=== PATIENT | male | born 1980 | race African-American/Black ===

== ENCOUNTER → 2017-03-31 | Outpatient (CLI) | payer OTHER ==
[~2017-03-31] MED LIST: CEFD300C3 PO; CEPH500C PO; HYDR-1231 PO; IBP600T1 PO; SULF1TAB38 PO
--- NOTE | 2017-03-31 09:53 | Diagnostic Imaging Report ---
PROCEDURE: MRI left joint lower extremity without contrast. TECHNIQUE: Multiplanar, multisequence MR imaging of the left knee was performed without contrast. COMPARISON: None available. INDICATION: Knee pain after injury playing basketball. FINDINGS: MENISCI Medial meniscus: Intrasubstance signal within the posterior horn of the meniscus is likely due to intrasubstance degeneration. No displaced medial meniscal tear. Lateral meniscus: Normal. LIGAMENTS ACL: Intact. PCL: Intact. MCL: Intact. LCL: The lateral collateral ligamentous complex is intact. EXTENSOR MECHANISM The extensor mechanism is intact. CARTILAGE Medial compartment: Multifocal full-thickness chondral fissuring and delamination within the posterior and central weightbearing portion of the medial femoral condyle. There is underlying subchondral bone marrow edema. No broad areas of full-thickness chondral loss medial femoral condyle. Lateral compartment: Full-thickness chondromalacia in the posterior weightbearing surface of the lateral femoral condyle (image 7, series 5). Patellofemoral compartment: Focal full-thickness chondral defect in the trochlear groove with underlying subchondral bone marrow edema and sclerosis (size on image 10, series 3 and image 14, series 4). BONE No fracture or bone contusion. SOFT TISSUE: Moderate-sized knee joint effusion with synovitis. Small Bolton's cyst with edema tracking along the superficial aspect of the medial head of gastrocnemius, indicative of partial cyst rupture. IMPRESSION: 1. Multifocal full-thickness chondral fissuring, small areas of chondral loss and a few foci of chondral delamination involving all three compartments. Some of these foci have underlying subchondral bone marrow edema and cystic change, and may represent a posttraumatic osteochondral lesions. There are no MRI findings to indicate an unstable osteochondral lesion. 2. No meniscal tear. 3. The ACL and MCL are intact. 4. Moderate-sized knee joint effusion with synovitis. 5. Small Bolton's cyst is partially ruptured. Dictated by: Dictated on workstation # [id number]
== END ==
LOC: RAD 08:15
PROVIDERS: ATTEND Family Medicine
DX: M94.8X6 Other specified disorders of cartilage, lower leg (principal); M25.462 Effusion, left knee; M66.0 Rupture of popliteal cyst
CPT/HCPCS: 73721

== ENCOUNTER 2018-05-10 22:13 | Emergency (ER) | payer SELFPAY ==
[~2018-05-10] VITALS: Ht 193 cm; Wt 88.5 kg
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
[2018-05-10 22:56] LABS: BASOPHILS # (AUTO) 0.1 10^3/uL (0.0-0.1); BASOPHILS % (AUTO) 1 % (0-10); EOSINOPHILS # (AUTO) 0.8 10^3/uL (0.0-0.3); EOSINOPHILS % (AUTO) 12 % (0-10); HEMATOCRIT 41 % (40-54); HEMOGLOBIN 13.8 G/DL (13.3-17.7); LYMPHOCYTES # (AUTO) 2.1 X 10^3 (1.0-4.0); LYMPHOCYTES % (AUTO) 32 % (12-44); MEAN CORPUSCULAR HEMOGLOBIN 30 PG (25-34); MEAN CORPUSCULAR HGB CONC 34 G/DL (32-36); MEAN CORPUSCULAR VOLUME 88 FL (80-99); MONOCYTES # (AUTO) 0.7 X 10^3 (0.0-1.0); MONOCYTES % (AUTO) 11 % (0-12); NEUTROPHILS # (AUTO) 2.9 X 10^3 (1.8-7.8); NEUTROPHILS % (AUTO) 44 % (42-75); PLATELET COUNT 354 10^3/uL (130-400); RED BLOOD COUNT 4.67 10^6/uL (4.35-5.85); RED CELL DISTRIBUTION WIDTH 14.1 % (10.0-14.5); WHITE BLOOD COUNT 6.5 10^3/uL (4.3-11.0)
[2018-05-10 23:01] LABS: PROTHROMBIN TIME PATIENT 12.8 SEC (12.2-14.7)
[2018-05-10 23:09] LABS: ALANINE AMINOTRANSFERASE 28 U/L (0-55); ALBUMIN 3.8 GM/DL (3.2-4.5); ALKALINE PHOSPHATASE 187 U/L (40-136); BILIRUBIN,TOTAL 0.5 MG/DL (0.1-1.0); BUN/CREATININE RATIO 10; CALCIUM 9.5 MG/DL (8.5-10.1); CARBON DIOXIDE 26 MMOL/L (21-32); CHLORIDE 103 MMOL/L (98-107); CREATININE SERUM 1.13 MG/DL (0.60-1.30); GFR ESTIMATED > 60; GLUCOSE 81 MG/DL (70-105); POTASSIUM 3.7 MMOL/L (3.6-5.0); SODIUM 138 MMOL/L (135-145); TOTAL PROTEIN 7.9 GM/DL (6.4-8.2)
[2018-05-10 23:21] LABS: BILIRUBIN,URINE NEGATIVE (NEGATIVE); CLARITY,URINE CLEAR; COLOR,URINE YELLOW; GLUCOSE, URINE (UA) NEGATIVE (NEGATIVE); KETONES,URINE NEGATIVE (NEGATIVE); LEUKOCYTE ESTERASE ,URINE 1+ (NEGATIVE); NITRITE,URINE NEGATIVE (NEGATIVE); PH,URINE 7 (5-9); PROTEIN,URINE NEGATIVE (NEGATIVE); UROBILINOGEN,URINE 4 MG/DL (NORMAL)
[2018-05-10 23:28] LABS: BACTERIA,URINE NEGATIVE /HPF; RBC,URINE RARE /HPF
[2018-05-10 23:34] LABS: AMPHETAMINE SCREEN, URINE NEGATIVE (NEGATIVE); BARBITURATE SCREEN URINE NEGATIVE (NEGATIVE); BENZODIAZEPINES SCREEN URINE NEGATIVE (NEGATIVE); CANNABINOID SCREEN, URINE POSITIVE (NEGATIVE); COCAINE SCREEN URINE NEGATIVE (NEGATIVE); METHADONE STAT NEGATIVE (NEGATIVE); METHAMPHETAMINE SCREEN URINE S NEGATIVE (NEGATIVE); OPIATE SCREEN URINE NEGATIVE (NEGATIVE); OXYCODONE STAT NEGATIVE (NEGATIVE); PROPOXYPHENE STAT NEGATIVE (NEGATIVE); TRICYCLIC ANTIDEPRESSANTS SCRE NEGATIVE (NEGATIVE)
[2018-05-11] MEDS ORDERED: RX-CIPROFLOXACIN (CILOXAN) 0.3% OP SOLN 2.5 ML OP STA (00:38)
[2018-05-11] MEDS ORDERED: methylPREDNISolone 125 MG (Solu-MEDROL) VIAL IV STA (00:38)
[2018-05-11] MEDS ORDERED: cefTRIAXone FOR IV USE 1,000 MG in NS (IVPB) 50 ML IV ONE (00:45)
--- NOTE | 2018-05-11 00:46 | ED General ---
General Chief Complaint: General Problems/Pain Stated Complaint: EYE PROBLEMS, BUMP ON NECK Nursing Triage Note: PT AMB TO ROOM #6 W/O DIFFICULTY. A&OX4. CO RASH OVER ABD/UPPER EXTREMITIES, BILAT EYE REDDNESS/IRRITATION/PAIN/PHOTOPHOBIA/BLURRED VISION, AND KNOTS UNDER SKIN NOTED TO RT AC AREA/LT SIDE OF NECK. PT REPORTS HE HAS BEEN HAVING FEVER AND CHIILLS INTERMITTENTLY. CONCERNS LISTED ABOVED REPORTED TO HAVE BEGAN 3 WKS AGO. PT REPORTS HE "DOESNT LIKE TO COME TO ED." PT REPORTS HIS EYES "HURT SO BAD THEY ARE GIVING ME A MIGRAINE." PT REPORTS PAIN IN HEAD IS LOCATED IN FOREHEAD AND TEMPORAL AREA. Nursing Sepsis Screen: Possible Sepsis Risk Source of Information: Patient History of Present Illness Date Seen by Provider: May 10, 2018 Time Seen by Provider: 22:45 Initial Comments ARRIVES VIA POV MULTIPLE COMPLAINTS--ALL ONGOING FOR AT LEAST 3 WEEKS C/O RASH OVER UPPER ABDOMEN AND ARMS--IS ITCHY C/O EYE PAIN AND REDNESS--STARTED IN RIGHT EYE AND NOW IS ALSO IN LEFT EYE, EYES ARE WATERY, BUT NO PURULENT DRAINAGE C/O HEADACHE DUE TO EYE PAIN--TEMPLES/SIDES OF HEAD C/O "KNOTS" ON FOREARMS, ELBOWS AND LATERAL AND POSTERIOR NECK STARTED HAVING LEFT FLANK PAIN, THEN LEFT ARM PAIN, THEN RIGHT ARM PAIN "THEN MY VISION" "THEN MY CHEST BROKE OUT" "NOW MY HEAD, LEGS, BACK AND SIDES OF MY HEAD" --ALL WITH RASH HAS HAD SUBJECTIVE FEVER AND CHILLS STATES HE SLEPT ALL DAY TODAY NO PROBLEMS URINATING NO ABDOMINAL PAIN NO NAUSEA/VOMITING/DIARRHEA NO URI SYMPTOMS NO COUGH OR SHORTNESS OF BREATH NO CHEST PAIN NO PROBLEMS URINATING NO PENILE DISCHARGE OR GENITAL SORES OR PAIN NO TICK OR MOSQUITO BITES. SYMPTOMS ARE NO DIFFERENT TODAY HAS NOT SOUGHT CARE UNTIL TODAY HAS NOT TAKEN ANYTHING FOR SYMPTOMS PCP: DR. Bertha ROTHMAN Allergies and Home Medications Allergies Coded Allergies: NKANo Known Allergies (Unverified Allergy, Mild, 12/14/09) Home Medications Cefdinir 300 Mg Capsule, 1 EACH PO BID Prescribed by: HAMIDA TANNER on 02/17/15 155 Ciprofloxacin HCl 2.5 Ml Drops, 2 DROPS OP UD 2 DROPS TO AFFECTED EYE EVERY 2 HOURS WHILE AWAKE FOR FIRST 2 DAYS, THEN Q 4 HOURS WHILE AWAKE FOR A TOTAL OF 7 DAYS Prescribed by: CAITY CAMACHO on 05/11/1850 Doxycycline Monohydrate 100 Mg Capsule, 100 MG PO BID Prescribed by: CAITY CAMACHO on 05/11/1850 Hydrocodone Bit/Acetaminophen 1 Tab Tablet, 1 TAB PO Q4H PRN for PAIN Prescribed by: HAMIDA TANNER on 02/17/15 1724 Methylprednisolone 4 Mg Tab.ds.pk, 4 MG PO UD Prescribed by: CAITY CAMACHO on 05/11/1850 Permethrin 60 Gm Cream..g., 60 GM TP UD APPLY DIRECTED. REPEAT TREATMENT IN 1 WEEK Prescribed by: CAITY CAMACHO on 05/11/1850 Patient Home Medication List Home Medication List Reviewed: Yes Review of Systems Review of Systems Constitutional: see HPI, chills, malaise EENTM: see HPI, eye pain, tearing; No blurred vision, No double vision, No mouth pain, No nose congestion, No throat pain Respiratory: no symptoms reported; No cough, No short of breath Cardiovascular: no symptoms reported; No chest pain Gastrointestinal: no symptoms reported; No abdominal pain, No diarrhea, No loss of appetite, No nausea, No vomiting Genitourinary: no symptoms reported; No discharge, No dysuria, No frequency, No hematuria, No pain Musculoskeletal: see HPI Skin: see HPI, pruritus, rash Psychiatric/Neurological: No Symptoms Reported, Headache; Denies Numbness, Denies Paresthesia, Denies Tingling, Denies Tremors, Denies Weakness Hematologic/Lymphatic: See HPI, Swollen Glands Immunological/Allergic: no symptoms reported Past Gtlzfiz-Hekvid-Fhsgby Hx Patient Social History Alcohol Use: Occasionally Uses Recreational Drug Use: No Smoking Status: Current Everyday Smoker Type Used: Cigarettes 2nd Hand Smoke Exposure: Yes Recent Foreign Travel: No Contact w/Someone Who Travel: No Recent Infectious Disease Expo: No Physical Abuse: No Sexual Abuse: No Immunizations Up To Date Tetanus Booster (TDap): Unknown Seasonal Allergies Seasonal Allergies: Yes Past Medical History Surgeries: Yes (LEFT HAND SURGERY; BILATERAL KNEE SCOPES) Orthopedic Respiratory: Yes Asthma Cardiac: Yes Hypertension Neurological: Yes Concussion Reproductive Disorders: No Sexually Transmitted Disease: No HIV/AIDS: No Gastrointestinal: No Musculoskeletal: Yes (LEFT HAND SURGERY; BILATERAL KNEE SCOPES) Endocrine: No Cancer: No Psychosocial: No Integumentary: No Blood Disorders: No Adverse Reaction/Blood Tranf: No Family Medical History Patient reports no known family medical history. Physical Exam Vital Signs Vital Signs - First Documented 05/11/18 01:38 Temp 99.3 Pulse 94 Resp 18 B/P (MAP) 154/83 (121) Pulse Ox 99 O2 Delivery Room Air Capillary Refill : Less Than 3 Seconds Height, Weight, BMI Height: 6'4.00" Weight: 195lbs. 3.0oz. 88.548969jr; BMI Method:Stated General Appearance: No Apparent Distress, WD/WN HEENT: TMs Normal, Normal ENT Inspection, Pharynx Normal, Other (CONJUNCTIVA INFLAMED BILATERALLY--LEFT > RIGHT, WITH MILD PHOTOPHOBIA, NO PURULENT DRAINAGE , BUT EYES ARE WATERY. ) Neck: Full Range of Motion, Non Tender, Supple, Lymphadenopathy (L), Lymphadenopathy (R), Other (ANTERIOR, POSTERIOR AND OCCIPITAL LYMPH NODES. 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 --PALMS, SOLES, FACE AND SCALP ARE SPARED. ), Other (DOES HAVE MULTIPLE AREAS OF FOLLICULITIS TO SCALP-MOSTLY AT HAIRLINE AND IN HARRISON AREA. NO DRAINING OR ABSCESSES. ) Lymphatic: No Axilla Node Tender (L), No Axilla Node Tender (R), No Inguinal Node Tender (L), No Inguinal Node Tender (R); Other (HAS BILATERAL EPITROCHLEAR NODES, AND ANTERIOR/POSTERIOR AND OCCIPITAL NODES. ) Focused Exam Lactate Level Lactic Acid Level Progress/Results/Core Measures Suspected Sepsis Recent Fever Within 48 Hours: Yes Infection Criteria Present: Suspected New Infection New/Unexplained Altered Menta: No Sepsis Screen: Possible Sepsis Risk SIRS Temperature:99.3 Pulse: 96 Respiratory Rate: 18 Blood Pressure 161 /101 Mean: 121 Results/Orders Lab Results My Orders Vital Signs/I&O Capillary Refill : Less Than 3 Seconds Blood Pressure Mean: 121 Progress Note : Progress Note PT IS BEING DISMISSED, NOW WANT SOMETHING FOR HEADACHE--HAD NOT COMPLAINED OF HEADACHE UNTIL HE WAS BEING DISMISSED. STRESSED THE IMPORTANCE OF FOLLOW UP WITH HIS PCP THIS WEEK FOR FURTHER CARE Departure Impression Primary Impression: Generalized papular rash Additional Impressions: Conjunctivitis of both eyes Reactive lymphadenopathy POSSIBLE SCABIES Headache Disposition: HOME, SELF-CARE Condition: Stable Departure-Patient Inst. Referrals: CAROL ROTHMAN MD (PCP/Family) Primary Care Physician Patient Instructions: Conjunctivitis (Pinkeye) (DC), LYMPH NODE INFECTION, LYMPH NODE SWELLING, Scabies (DC), Skin Rash (DC) Add. Discharge Instructions: HOME, REST LOTS OF CLEAR LIQUIDS CLARITIN 10 MG IN AM, BENADRYL 50 MG IN PM FOR RASH AND ITCHING FOLLOW UP WITH YOUR DR THIS WEEK FOR FURTHER CARE All discharge instructions reviewed with patient and/or family. Voiced understanding. Scripts Ciprofloxacin HCl (Ciprofloxacin HCl) 2.5 Ml Drops 2 DROPS OP UD for 7 Days, #1 UNIT 2 DROPS TO AFFECTED EYE EVERY 2 HOURS WHILE AWAKE FOR FIRST 2 DAYS, THEN Q 4 HOURS WHILE AWAKE FOR A TOTAL OF 7 DAYS Prov: CAITY CAMACHO DO 05/11/18 Methylprednisolone (Medrol) 4 Mg Tab.ds.pk 4 MG PO UD, #1 PKG Prov: CAITY CAMACHO DO 05/11/18 Doxycycline Monohydrate (Doxycycline Monohydrate) 100 Mg Capsule 100 MG PO BID, #20 CAP Prov: CAITY CAMACHO DO 05/11/18 Permethrin (Elimite) 60 Gm Cream..g. 60 GM TP UD, #1 TUBE 1 Refill APPLY DIRECTED. REPEAT TREATMENT IN 1 WEEK Prov: CAITY CAMACHO DO 05/11/18 CAITY CAMACHO DO May 11, 2018 00:46
[2018-05-11] MEDS ORDERED: PERM60CR17 TP (00:51)
[2018-05-11] MEDS ORDERED: CIPR2.5D2 OP ×2 (00:51)
[2018-05-11] MEDS ORDERED: DOXY100C42 PO (00:51)
[2018-05-11] MEDS ORDERED: METH4TAB PO (00:51)
[2018-05-11] MEDS ORDERED: KETOROLAC 30 MG/ML VIAL IVP ONE (01:30)
[2018-05-11 01:38] VITALS: BP 154/83
== END 2018-05-11 01:40 | disposition home or self-care (01) ==
LOC: EDUNIT# 22:13 → ER 22:15
DX: R21 Rash and other nonspecific skin eruption (principal); H10.9 Unspecified conjunctivitis; R59.0 Localized enlarged lymph nodes; J45.909 Unspecified asthma, uncomplicated; I10 Essential (primary) hypertension; F17.210 Nicotine dependence, cigarettes, uncomplicated
CPT/HCPCS: 36415; 80053; 80306; 80320; 81000; 83605; 85025; 85610; 85730; 86308; 86618; 86666; 86668; 86757; 87040; 96365; 96375

== ENCOUNTER 2019-05-10 08:55 | Emergency (ER) | payer SELFPAY ==
[~2019-05-10] VITALS: Ht 193 cm; Wt 89.0 kg
[~2019-05-10 08:55] MED LIST changes: +CIPR2.5D2 OP; +DOXY100C42 PO; +METH4TAB PO; +PERM60CR17 TP
--- NOTE | 2019-05-10 10:01 | NUR ---
pt resting quietly in ED bed awake, alert, playing on cell phone, pt denies any needs or c/o at this time, pt shows no s/s of distress, vs assessed and stable at this time, will continue to monitor
--- NOTE | 2019-05-10 10:03 | Diagnostic Imaging Report ---
Indication: Hyperextension injury to left knee 4 weeks ago playing basketball. Time of exam 9:43 AM 3 views of the left knee were obtained. The alignment is normal. The joint spaces are well-maintained. The articular surfaces are smooth. No fracture or dislocation is seen. There is fullness in the suprapatellar location consistent with a small to moderate joint effusion. Impression: Knee joint effusion. No acute bony abnormality is detected. Dictated by: Dictated on workstation # [id number]
--- NOTE | 2019-05-10 10:29 | ED Lower Extremity ---
General Chief Complaint: General Problems/Pain Stated Complaint: KNEE PAIN Nursing Triage Note: states he was playing basketball 4 weeks ago when he hurt his L knee, has swelling in knee that will not go away and increasing pain Nursing Sepsis Screen: No Definite Risk Source: patient Exam Limitations: no limitations History of Present Illness Date Seen by Provider: May 10, 2019 Time Seen by Provider: 09:23 Initial Comments This 39 year old gentleman presents to the ER for evaluation of a left knee injury. He hyperextended his knee about 4 weeks ago while playing basketball. During the same incident he states his medial knee was also struck by another player's knee. He has been using ice and ibuprofen which he does not feel have been very effective. He has persistent pain and swelling. He is ambulatory but states his knee feels unstable. He reports a similar injury about 2 years ago. He has not been seen for this injury and has never had any advanced imaging performed on it. Allergies and Home Medications Allergies Coded Allergies: NKANo Known Allergies (Unverified Allergy, Mild, 12/14/09) Home Medications Cefdinir 300 Mg Capsule, 1 EACH PO BID Prescribed by: HAMIDA TANNER on 02/17/15 1837 Ciprofloxacin HCl 2.5 Ml Drops, 2 DROPS OP UD 2 DROPS TO AFFECTED EYE EVERY 2 HOURS WHILE AWAKE FOR FIRST 2 DAYS, THEN Q 4 HOURS WHILE AWAKE FOR A TOTAL OF 7 DAYS Prescribed by: CAITY CAMACHO on 05/11/1850 Doxycycline Monohydrate 100 Mg Capsule, 100 MG PO BID Prescribed by: CAITY CAMACHO on 05/11/1850 Hydrocodone Bit/Acetaminophen 1 Tab Tablet, 1 TAB PO Q4H PRN for PAIN Prescribed by: HAMIDA TANNER on 02/17/15 1724 Methylprednisolone 4 Mg Tab.ds.pk, 4 MG PO UD Prescribed by: CAITY CAMACHO on 05/11/1850 Permethrin 60 Gm Cream..g., 60 GM TP UD APPLY DIRECTED. REPEAT TREATMENT IN 1 WEEK Prescribed by: CAITY CAMACHO on 05/11/1850 Patient Home Medication List Home Medication List Reviewed: Yes Review of Systems Constitutional: no symptoms reported EENTM: no symptoms reported Respiratory: no symptoms reported Cardiovascular: no symptoms reported Gastrointestinal: no symptoms reported Genitourinary: no symptoms reported Musculoskeletal: see HPI Skin: no symptoms reported Psychiatric/Neurological: No Symptoms Reported Past Vzcmuvl-Wdedrv-Yuokhj Hx Past Med/Social Hx: Reviewed Nursing Past Med/Soc Hx Patient Social History Alcohol Use: Occasionally Uses Recreational Drug Use: No Smoking Status: Current Everyday Smoker Type Used: Cigarettes 2nd Hand Smoke Exposure: Yes Recent Foreign Travel: No Contact w/Someone Who Travel: No Recent Infectious Disease Expo: No Immunizations Up To Date Tetanus Booster (TDap): Less than 5yrs Seasonal Allergies Seasonal Allergies: Yes Past Medical History Surgeries: Yes (LEFT HAND SURGERY; BILATERAL KNEE SCOPES) Orthopedic Respiratory: Yes Asthma Cardiac: Yes Hypertension Neurological: Yes Concussion Reproductive Disorders: No Sexually Transmitted Disease: No HIV/AIDS: No Gastrointestinal: No Musculoskeletal: Yes (LEFT HAND SURGERY; BILATERAL KNEE SCOPES) Endocrine: No Cancer: No Psychosocial: No Integumentary: No Blood Disorders: No Adverse Reaction/Blood Tranf: No Family Medical History Patient reports no known family medical history. Physical Exam Vital Signs Vital Signs - First Documented 05/10/19 05/10/19 09:06 11:08 Temp 35.9 Pulse 75 Resp 18 B/P (MAP) 164/121 (135) Pulse Ox 99 O2 Delivery Room Air Capillary Refill : Less Than 3 Seconds Height, Weight, BMI Height: 6'4.00" Weight: 195lbs. 3.0oz. 88.952564nn; 23.00 BMI Method:Stated General Appearance: WD/WN, no apparent distress HEENT: normal ENT inspection Cardiovascular: regular rate, rhythm, no edema, no murmur Respiratory: lungs clear, normal breath sounds, no respiratory distress Legs: bilateral leg non-tender, bilateral leg normal inspection, bilateral leg normal range of motion, bilateral leg no evidence of injury Knees: right knee non-tender, right knee normal inspection, right knee normal range of motion, right knee no evidence of injury; left knee bone tenderness, left knee joint effusion, left knee pain, left knee swelling, left knee other (There is tenderness and swelling about the knee joint, greater medially. No crepitus. Normal ROM. Pain with ROM of the knee and axial pressure. No heat or erythema. Subtle laxity with drawar tests.) Ankles: left ankle normal inspection, left ankle no evidence of injury Neurologic/Tendon: normal sensation, normal motor functions, normal tendon fu nctions Neurologic/Psychiatric: no motor/sensory deficits, alert, normal mood/affect, oriented x 3 Skin: normal color, warm/dry Progress/Results/Core Measures Results/Orders My Orders Orders - LORRIE TREJO MD Knee, Left, 3 Views (05/10/19 09:36) Knee Immobilizer (05/10/19 10:52) Vital Signs/I&O 05/10/19 05/10/19 09:06 11:08 Temp 35.9 35.9 Pulse 75 75 Resp 18 18 B/P (MAP) 164/121 (135) 164/121 (135) Pulse Ox 99 O2 Delivery Room Air Blood Pressure Mean: 135 Progress Progress Note : Progress Note Patient was offered knee immobilizer for support which he felt would be helpful. X-ray of the knee was unremarkable. Further evaluation by an orthopedist was recommended. He may need MRI to evaluate for soft tissue injury. He declined more aggressive pain management. Diagnostic Imaging Diagonstic Imaging: Xray Plain Films/CT/US/NM/MRI: knee Comments Left knee x-ray viewed by me and report reviewed. See report below: NAME: RUSSELL METZ Miriam [facility] REC#: [id number] PT STATUS: REG ER : 1980 PHYSICIAN: LORRIE TREJO MD ADMIT DATE: 05/10/19/ER Draft Date of Exam:05/10/19 KNEE, LEFT, 3 VIEWS Indication: Hyperextension injury to left knee 4 weeks ago playing basketball. Time of exam 9:43 AM 3 views of the left knee were obtained. The alignment is normal. The joint spaces are well-maintained. The articular surfaces are smooth. No fracture or dislocation is seen. There is fullness in the suprapatellar location consistent with a small to moderate joint effusion. Impression: Knee joint effusion. No acute bony abnormality is detected. Dictated on workstation # [id number] Dict: 05/10/19 1000 Trans: 05/10/[address] [place] [address] [id number] Interpreted by: AYALA SCOTT MD Departure Impression Primary Impression: Left knee injury Qualified Codes: S89.92XA - Unspecified injury of left lower leg, initial encounter Disposition: 01 HOME, SELF-CARE Condition: Stable Departure-Patient Inst. Decision time for Depature: 10:45 Referrals: ZURDO HALEY MD, CHAD C MD (PCP/Family) Primary Care Physician Patient Instructions: Knee Sprain (DC) Add. Discharge Instructions: For pain you may take ibuprofen up to 600 mg every 6 hours as needed and Tylenol (acetaminophen) up to 1000 mg every 6 hours as needed. You may support your knee with a sleeve, Devaughn wraps, and or a knee immobilizer. You may elevate and ice your knee in 20 minute intervals to help with pain and swelling. Follow-up with a primary care and/or orthopedic provider as soon as possible. Further evaluation may be needed with studies such as MRI. Please complete the hospital financial assistance as soon as possible to help facilitate this process. Return to care if you have worsening symptoms despite the above measures. All discharge instructions reviewed with patient and/or family. Voiced understanding. Copy Copies To 1: CAROL ROTHMAN MD Copies To 2: ZURDO HALEY MD, JOSHUA T MD May 10, 2019 10:29
--- NOTE | 2019-05-10 10:31 | NUR ---
no change from prior assessment
[2019-05-10 11:08] VITALS: BP 164/121
== END 2019-05-10 11:09 | disposition home or self-care (01) ==
LOC: EDUNIT# 08:55 → ER 08:57
DX: S89.92XA Unspecified injury of left lower leg, initial encounter (principal); J45.909 Unspecified asthma, uncomplicated; I10 Essential (primary) hypertension; F17.210 Nicotine dependence, cigarettes, uncomplicated; X58.XXXA Exposure to other specified factors, initial encounter; Y93.67 Activity, basketball
CPT/HCPCS: 73562

== ENCOUNTER 2021-01-26 06:16 | Emergency (ER) | payer SELFPAY ==
[~2021-01-26] VITALS: Ht 193 cm; Wt 83.2 kg
[~2021-01-26 06:16] MED LIST changes: -CIPR2.5D2 OP; +CIPR2.5D3 OP
[2021-01-26 06:20] VITALS: BP 160/105
[2021-01-26] MEDS ORDERED: FAMOTIDINE 20MG/2ML IV (PEPCID) IV STA (06:42)
[2021-01-26] MEDS ORDERED: ONDANSETRON 4 MG/2 ML (SDV) Z0FRAN IVP ONE (06:45)
[2021-01-26] MEDS ORDERED: LIDOCAINE 2% VISCOUS 15 ML UDC PO ONE (06:45)
[2021-01-26] MEDS ORDERED: ANTACID SUSP 30 ML UDC (MYLANTA) PO ONE (06:45)
--- NOTE | 2021-01-26 06:52 | ED Chest Pain ---
General Chief Complaint: Chest Pain Stated Complaint: N/V / CHEST PAIN Nursing Triage Note: TO ED VIA POV AND AMBULATORY TO ROOM 7 WITH C/O CP FOR 2 WEEKS. ALSO C/O H/A, DIZZINESS FOR 2 YEARS. Nursing Sepsis Screen: No Definite Risk Source: patient Exam Limitations: no limitations History of Present Illness Date Seen by Provider: January 26, 2021 Time Seen by Provider: 06:29 Initial Comments This 40-year-old gentleman presents to the emergency room with primary complaint of left central chest pain that has been constant for about 2 weeks. It is a little worse with inspiration, but he otherwise identifies no alleviating or exacerbating factors. He has hypertension but denies any other known cardiac disease. He secondarily complains of recurrent headaches for about 2 years. Headache is worse this morning. He sometimes has associated blurry vision, left upper arm numbness, and balance issues. Although these symptoms have been ongoing for a couple of years, he has not been worked up for any of these issues yet. He also has known hypertension that is not treated. On exam his chest and left upper quadrant are tender to palpation. He describes vomiting through the night last night. Allergies and Home Medications Allergies Coded Allergies: DREWANo Known Allergies (Unverified Allergy, Mild, 12/14/09) Home Medications Amoxicillin 500 Mg Capsule, 1,000 MG PO BID Prescribed by: LORRIE CASTELLANO on 01/26/21 09 Cefdinir 300 Mg Capsule, 1 EACH PO BID Prescribed by: HAMIDA TANNER on 02/17/15 1837 Ciprofloxacin HCl 2.5 Ml Drops, 2 DROPS OP UD 2 DROPS TO AFFECTED EYE EVERY 2 HOURS WHILE AWAKE FOR FIRST 2 DAYS, THEN Q 4 HOURS WHILE AWAKE FOR A TOTAL OF 7 DAYS Prescribed by: CAITY CAMACHO on 05/11/18 005 Doxycycline Monohydrate 100 Mg Capsule, 100 MG PO BID Prescribed by: CAITY CAMACHO on 05/11/18 005 Hydrocodone Bit/Acetaminophen 1 Tab Tablet, 1 TAB PO Q4H PRN for PAIN Prescribed by: HAMIDA TANNER on 02/17/15 172 Lorazepam 0.5 Mg Tablet, 0.5 MG PO Q4H PRN for AGITATION Prescribed by: LORRIE CASTELLANO on 01/26/21 09 Methylprednisolone 4 Mg Tab.ds.pk, 4 MG PO UD Prescribed by: CAITY CAMACHO on 05/11/1850 Ondansetron 4 Mg Tab.rapdis, 4 MG SL Q4H PRN for NAUSEA/VOMITING Prescribed by: LORRIE CASTELLANO on 01/26/21 0909 Permethrin 60 Gm Cream..g., 60 GM TP UD APPLY DIRECTED. REPEAT TREATMENT IN 1 WEEK Prescribed by: CAITY CAMACHO on 05/11/1850 Patient Home Medication List Home Medication List Reviewed: Yes Review of Systems Review of Systems Constitutional: no symptoms reported EENTM: No Symptoms Reported Respiratory: See HPI Cardiovascular: See HPI Gastrointestinal: See HPI Genitourinary: No Symptoms Reported Musculoskeletal: no symptoms reported Skin: no symptoms reported Psychiatric/Neurological: See HPI Endocrine: No Symptoms Reported Hematologic/Lymphatic: No Symptoms Reported Past Zeyneot-Ggzzhc-Dkeagm Hx Past Med/Social Hx: Reviewed Nursing Past Med/Soc Hx Patient Social History Alcohol Use: Denies Use Drug of Choice: MARIJUANA Type Used: Cigarettes 2nd Hand Smoke Exposure: Yes Recent Infectious Disease Expo: No Immunizations Up To Date Tetanus Booster (TDap): Less than 5yrs Seasonal Allergies Seasonal Allergies: Yes Past Medical History Surgeries: Yes (LEFT HAND SURGERY; BILATERAL KNEE SCOPES) Orthopedic Respiratory: Yes Asthma Cardiac: Yes Hypertension Neurological: Yes Concussion Reproductive Disorders: No Sexually Transmitted Disease: No HIV/AIDS: No Gastrointestinal: No Musculoskeletal: Yes (LEFT HAND SURGERY; BILATERAL KNEE SCOPES) Endocrine: No Cancer: No Psychosocial: No Integumentary: No Blood Disorders: No Adverse Reaction/Blood Tranf: No Family Medical History Patient reports no known family medical history. Heart Disease, Cancer (brain), GI Disease (ulcers), Hypertension Physical Exam Vital Signs Vital Signs - First Documented 01/26/21 06:20 Pulse 81 Resp 16 B/P (MAP) 160/105 (123) O2 Delivery Room Air Capillary Refill : Less Than 3 Seconds Height, Weight, BMI Height: 6'4.00" Weight: 195lbs. 3.0oz. 88.563170do; 22.00 BMI Method:Stated General Appearance: WD/WN, Mild Distress (appears uncomfortable), Thin (tall) HEENT: PERRL/EOMI, Normal ENT Inspection Neck: Normal Inspection Respiratory: Lungs Clear, Normal Breath Sounds, No Accessory Muscle Use, No Respiratory Distress, Other (anterior chest TTP) Cardiovascular: Regular Rate, Rhythm, No Edema, No Murmur, Normal Peripheral Pulses Gastrointestinal: Normal Bowel Sounds, Soft, Tenderness (LUQ) Extremity: Normal Inspection, No Pedal Edema Neurologic/Psychiatric: Alert, Oriented x3, No Motor/Sensory Deficits, Normal Mood/Affect, cigar packer and grader II-XII Norm as Tested Skin: Normal Color, Warm/Dry Progress/Results/Core Measures Results/Orders Lab Results Laboratory Tests Test 01/26/21 07:00 Range/Units White Blood Count 6.8 4.3-11.0 10^3/uL Red Blood Count 4.57 4.30-5.52 10^6/uL Hemoglobin 14.2 13.3-17.7 g/dL Hematocrit 41 40-54 % Mean Corpuscular Volume 90 80-99 fL Mean Corpuscular Hemoglobin 31 25-34 pg Mean Corpuscular Hemoglobin Concent 35 32-36 g/dL Red Cell Distribution Width 13.0 10.0-14.5 % Platelet Count 334 130-400 10^3/uL Mean Platelet Volume 9.0 9.0-12.2 fL Immature Granulocyte % (Auto) 0 % Neutrophils (%) (Auto) 69 42-75 % Lymphocytes (%) (Auto) 23 12-44 % Monocytes (%) (Auto) 6 0-12 % Eosinophils (%) (Auto) 1 0-10 % Basophils (%) (Auto) 1 0-10 % Neutrophils # (Auto) 4.7 1.8-7.8 10^3/uL Lymphocytes # (Auto) 1.6 1.0-4.0 10^3/uL Monocytes # (Auto) 0.4 0.0-1.0 10^3/uL Eosinophils # (Auto) 0.1 0.0-0.3 10^3/uL Basophils # (Auto) 0.1 0.0-0.1 10^3/uL Immature Granulocyte # (Auto) 0.0 0.0-0.1 10^3/uL Prothrombin Time 12.7 12.2-14.7 SEC INR Comment 0.9 0.8-1.4 Activated Partial Thromboplast Time 38 H 24-35 SEC D-Dimer < 0.27 0.00-0.49 UG/ML Sodium Level 140 135-145 MMOL/L Potassium Level 3.4 L 3.6-5.0 MMOL/L Chloride Level 107 98-107 MMOL/L Carbon Dioxide Level 19 L 21-32 MMOL/L Anion Gap 14 5-14 MMOL/L Blood Urea Nitrogen 9 7-18 MG/DL Creatinine 0.99 0.60-1.30 MG/DL Estimat Glomerular Filtration Rate > 60 BUN/Creatinine Ratio 9 Glucose Level 106 H 70-105 MG/DL Calcium Level 9.3 8.5-10.1 MG/DL Corrected Calcium 9.5 8.5-10.1 MG/DL Magnesium Level 2.2 1.6-2.4 MG/DL Total Bilirubin 0.8 0.1-1.0 MG/DL Aspartate Amino Transf (AST/SGOT) 26 5-34 U/L Alanine Aminotransferase (ALT/SGPT) 20 0-55 U/L Alkaline Phosphatase 95 40-136 U/L Myoglobin 55.4 10.0-92.0 NG/ML Troponin I < 0.028 <0.028 NG/ML C-Reactive Protein High Sensitivity 0.17 0.00-0.50 MG/DL Total Protein 6.8 6.4-8.2 GM/DL Albumin 3.8 3.2-4.5 GM/DL Lipase 252 H 8-78 U/L Serum Alcohol < 10 <10 MG/DL My Orders Orders - LORRIE TREJO MD Cbc With Automated Diff (01/26/21 06:31) Magnesium (01/26/21 06:31) Chest 1 View, Ap/Pa Only (01/26/21 06:31) Ekg Tracing (01/26/21 06:31) Comprehensive Metabolic Panel (01/26/21 06:31) Myoglobin Serum (01/26/21 06:31) Protime With Inr (01/26/21 06:31) Partial Thromboplastin Time (01/26/21 06:31) O2 (01/26/21 06:31) Monitor-Rhythm Ecg Trace Only (01/26/21 06:31) Ed Iv/Invasive Line Start (01/26/21 06:31) Troponin I (01/26/21 06:31) Ondansetron Injection (Zofran Injectio (01/26/21 06:45) Lipase (01/26/21 06:42) Lidocaine 2% Viscous 15 Ml (Xylocaine Vi (01/26/21 06:45) Antacid Suspension (Mylanta Suspension (01/26/21 06:45) Famotidine Injection (Pepcid Injection) (01/26/21 06:42) Ct Head Wo (01/26/21 06:43) Ekg Tracing (01/26/21 06:57) Promethazine Injection (Phenergan Injec (01/26/21 07:45) Nitroglycerin 0.4 Mg Btl 25's (Nitrostat (01/26/21 07:45) Aspirin Chewable Tablet (Baby Aspirin Ch (01/26/21 07:45) Alcohol (01/26/21 08:06) Hs C Reactive Protein (01/26/21 08:06) Fibrin Degradation Products (01/26/21 08:06) Fentanyl Inj (Sublimaze Injection) (01/26/21 08:45) Ceftriaxone For Iv Use (Rocephin For I (01/26/21 09:00) Lactated Ringers (Lr 1000 Ml Iv Solution (01/26/21 09:00) Lorazepam Tablet (Ativan Tablet) (01/26/21 09:19) Medications Given in ED Current Medications Medications Dose Ordered Sig/Vinny Route Start Time Stop Time Status Last Admin Dose Admin Ceftriaxone Sodium 1000 mg/ Sterile Water 10 ml @ 200 mls/hr ONCE ONCE IV 01/26/21 09:00 01/26/21 09:02 DC 01/26/21 09:08 200 MLS/HR Fentanyl Citrate 50 mcg ONCE ONCE IVP 01/26/21 08:45 01/26/21 08:46 DC 01/26/21 08:40 50 MCG Lactated Ringer's 1,000 ml @ 0 mls/hr Q0M ONCE IV 01/26/21 09:00 01/26/21 09:01 DC 01/26/21 09:08 1,000 MLS/HR Vital Signs/I&O 01/26/21 01/26/21 06:20 06:20 Pulse 81 Resp 16 B/P (MAP) 160/105 (123) O2 Delivery Room Air Room Air Blood Pressure Mean: 123 Progress Progress Note #1: Time: 08:17 Progress Note Patient was treated with Pepcid and Zofran. He states his nausea worsened after these medications. He did not want to take the GI cocktail as ordered. Phenergan was ordered for further management of his nausea. Patient had initially stated he did not drink alcohol but his significant other in the room stated he does drink several times a week. Lipase was moderately elevated. Pancreatitis is likely the cause of his left upper abdominal pain and vomiting. Initial cardiopulmonary work-up was unremarkable. D-dimer has been added for further evaluation. Progress Note #2: Time: 09:18 Progress Note Patient does admit to drinking multiple mixed drinks of vodka multiple days per week. I am concerned that his hypertension and headaches may be related to early withdrawal symptoms. I have discussed this with the patient and his significant other. I have advised that he use Ativan to treat withdrawal symptoms since he cannot drink any alcohol right now with pancreatitis. I have advised that he stop drinking alcohol completely and also work on smoking cessation. Because of the combined symptoms and issues he is presented with, I advised admission to the hospital overnight with n.p.o. status and support with IV fluids and symptom management. Patient declines stating financial reasons and need to be with family. I am still prescribing medications for him but he is leaving AGAINST MEDICAL ADVICE. Headache is probably partially due to sinusitis. We have discussed treating his sinusitis with amoxicillin and Flonase. He is receiving a dose of Rocephin in the ER for initial treatment. Since patient felt he was too nauseated to take the GI cocktail, fentanyl was administered for abdominal/chest pain and headache. His pain improved significantly. Initial ECG Impression Date: January 26, 2021 Initial ECG Impression Time: 06:30 Initial ECG Rate: 85 Initial ECG Rhythm: Normal Sinus Comment Sinus rhythm with subtle ST changes. No diagnostic ST elevation or depression. First-degree AV block with ID interval of 240 ms. Diagnostic Imaging Diagonstic Imaging: Xray Plain Films/CT/US/NM/MRI: chest Comments Chest x-ray viewed by me and report reviewed. See report below: NAME: RUSSELL METZ [facility] REC#: [id number] PT STATUS: REG ER : 1980 PHYSICIAN: LORRIE TREJO MD ADMIT DATE: 01/26/21/ER Signed Date of Exam:01/26/21 CHEST 1 VIEW, AP/PA ONLY INDICATION: Chest pain. COMPARISON: 06/16/2015. FINDINGS: The lungs appear clear without focal infiltrate or consolidation. There are no findings of an effusion. There is no evidence of a pneumothorax. Heart size and mediastinal contours appear appropriate. Pulmonary vascularity appears within normal limits. There is no acute or suspicious osseous abnormality demonstrated. IMPRESSION: No radiographic evidence of an acute cardiopulmonary process. Dictated by: Dictated on workstation # [id number] Dict: 01/26/2137 Trans: 01/26/21737 [facility] Interpreted by: ZOILA GARCIA MD Electronically signed by: ZOILA GARCIA MD 01/26/21737 Diagonstic Imaging: CT Plain Films/CT/US/NM/MRI: head Comments CT head viewed by me and report reviewed. See report below: NAME: RUSSELL METZ [facility] REC#: [id number] PT STATUS: REG ER : 1980 PHYSICIAN: LORRIE TREJO MD ADMIT DATE: 01/26/21/ER Signed Date of Exam:01/26/21 CT HEAD WO PROCEDURE: CT head without contrast. TECHNIQUE: Multiple contiguous axial images were obtained through the brain without the use of intravenous contrast. Auto Exposure Controls were utilized during the CT exam to meet ALARA standards for radiation dose reduction. INDICATION: Headache and blurry vision. COMPARISON: CT head of 06/16/2015 FINDINGS: No intracranial hyperdense hemorrhage or space-occupying mass. Specifically, there is no subarachnoid hemorrhage present. No hydrocephalus or midline shift. Basilar cisterns are patent. No cerebellar tonsillar ectopia. No acute skull fracture. Complete opacification of the right maxillary, anterior ethmoid and frontal sinuses is compatible with a linear pattern of obstruction. IMPRESSION: 1. No acute intracranial process. Specifically, no hemorrhage or features of large territorial infarct. 2. Right-sided sinusitis has a OMU pattern of obstruction. Dictated by: Dictated on workstation # [id number] Dict: 01/26/2139 Trans: 01/26/21819 [facility] Interpreted by: OWEN COLLADO MD Electronically signed by: OWEN COLLADO MD 01/26/21819 Departure Impression Primary Impression: Acute pancreatitis Qualified Codes: K85.20 - Alcohol induced acute pancreatitis without necrosis or infection Additional Impressions: Atypical chest pain Chronic headache Qualified Codes: R51.9 - Headache, unspecified; G89.29 - Other chronic pain Acute sinusitis Qualified Codes: J01.90 - Acute sinusitis, unspecified Hypertension Qualified Codes: I10 - Essential (primary) hypertension Disposition: 07 AGAINST MEDICAL ADVICE Condition: Against Medical Advice Admissions Decision to Admit Reason: Admit from ER (General) Decision to Admit/Date: January 26, 2021 Time/Decision to Admit Time: 08:20 Departure-Patient Inst. Decision time for Depature: 09:01 Referrals: CAROL ROTHMAN MD (PCP/Family) Primary Care Physician Patient Instructions: Chest Pain, Sinusitis, Adult (DC) Add. Discharge Instructions: Complete your antibiotics as prescribed for sinus infection. Also use Flonase (or generic fluticasone) 1 spray in each nostril twice daily for at least a few months. This can be purchased [id number] or on [employer]. Because of your pancreatitis and stomach issues, you should discontinue alcohol use. However, you drink alcohol often enough that you may be at risk for alcohol withdrawal. For this reason take Ativan as prescribed for withdrawal symptoms such as shakiness, agitation, insomnia, etc. Return to the emergency room if symptoms become more severe or do not respond to Ativan. Adhere to a clear liquid diet of noncarbonated nonalcoholic clear liquids for at least the next 24 hours. After pain and nausea subside, you may gradually advance with very small quantities of bland food as tolerated. For pain you may take Tylenol (acetaminophen) up to 1000 mg every 6 hours as needed. Avoid NSAID medications such as ibuprofen or naproxen (brand names such as Motrin, Aleve, Advil, etc.). You should not take significant amounts of Tylenol (acetaminophen) if you were still drinking alcohol. Take an antacid medication such as omeprazole 20 mg or Pepcid (famotidine) 20 mg twice daily for at least the next month. Call with questions or concerns. Return to the emergency room if you have worsening symptoms. Work toward quitting smoking as rapidly as possible. Follow-up with your primary care provider as soon as possible. Please call on Wednesday to make an appointment. Discuss your high blood pressure with your primary care provider as you may need treatment to control it. All discharge instructions reviewed with patient and/or family. Voiced understanding. Scripts Lorazepam (Ativan) 0.5 Mg Tablet 0.5 MG PO Q4H PRN for AGITATION, #5 TAB Prov: LORRIE TREJO MD 01/26/21 Amoxicillin (Amoxicillin) 500 Mg Capsule 1000 MG PO BID, #56 CAP 0 Refills Prov: LORRIE TREJO MD 01/26/21 Ondansetron (Ondansetron Odt) 4 Mg Tab.rapdis 4 MG SL Q4H PRN for NAUSEA/VOMITING, #10 TAB Prov: LORRIE TREJO MD 01/26/21 LORRIE TREJO MD January 26, 2021 06:52
[2021-01-26 07:12] LABS: BASOPHILS # (AUTO) 0.1 10^3/uL (0.0-0.1); BASOPHILS % (AUTO) 1 % (0-10); EOSINOPHILS # (AUTO) 0.1 10^3/uL (0.0-0.3); EOSINOPHILS % (AUTO) 1 % (0-10); HEMATOCRIT 41 % (40-54); HEMOGLOBIN 14.2 g/dL (13.3-17.7); LYMPHOCYTES # (AUTO) 1.6 10^3/uL (1.0-4.0); LYMPHOCYTES % (AUTO) 23 % (12-44); MEAN CORPUSCULAR HEMOGLOBIN 31 pg (25-34); MEAN CORPUSCULAR HGB CONC 35 g/dL (32-36); MEAN CORPUSCULAR VOLUME 90 fL (80-99); MONOCYTES # (AUTO) 0.4 10^3/uL (0.0-1.0); MONOCYTES % (AUTO) 6 % (0-12); NEUTROPHILS # (AUTO) 4.7 10^3/uL (1.8-7.8); NEUTROPHILS % (AUTO) 69 % (42-75); PLATELET COUNT 334 10^3/uL (130-400); WHITE BLOOD COUNT 6.8 10^3/uL (4.3-11.0)
[2021-01-26 07:29] LABS: ALBUMIN 3.8 GM/DL (3.2-4.5); CHLORIDE 107 MMOL/L (98-107); POTASSIUM 3.4 MMOL/L (3.6-5.0); SODIUM 140 MMOL/L (135-145)
[2021-01-26 07:30] LABS: CALCIUM 9.3 MG/DL (8.5-10.1); INR 0.9 (0.8-1.4); PROTHROMBIN TIME PATIENT 12.7 SEC (12.2-14.7)
[2021-01-26 07:31] LABS: GLUCOSE 106 MG/DL (70-105); TOTAL PROTEIN 6.8 GM/DL (6.4-8.2)
[2021-01-26 07:32] LABS: CARBON DIOXIDE 19 MMOL/L (21-32)
[2021-01-26 07:33] LABS: BILIRUBIN,TOTAL 0.8 MG/DL (0.1-1.0)
[2021-01-26 07:35] LABS: ALKALINE PHOSPHATASE 95 U/L (40-136); CREATININE SERUM 0.99 MG/DL (0.60-1.30); GFR ESTIMATED > 60
[2021-01-26 07:36] LABS: BUN/CREATININE RATIO 9
[2021-01-26 07:38] LABS: ALANINE AMINOTRANSFERASE 20 U/L (0-55); MAGNESIUM 2.2 MG/DL (1.6-2.4)
--- NOTE | 2021-01-26 07:39 | Diagnostic Imaging Report ---
INDICATION: Chest pain. COMPARISON: 06/16/2015. FINDINGS: The lungs appear clear without focal infiltrate or consolidation. There are no findings of an effusion. There is no evidence of a pneumothorax. Heart size and mediastinal contours appear appropriate. Pulmonary vascularity appears within normal limits. There is no acute or suspicious osseous abnormality demonstrated. IMPRESSION: No radiographic evidence of an acute cardiopulmonary process. Dictated by: Dictated on workstation # [id number]
--- NOTE | 2021-01-26 07:44 | Diagnostic Imaging Report ---
PROCEDURE: CT head without contrast. TECHNIQUE: Multiple contiguous axial images were obtained through the brain without the use of intravenous contrast. Auto Exposure Controls were utilized during the CT exam to meet ALARA standards for radiation dose reduction. INDICATION: Headache and blurry vision. COMPARISON: CT head of 06/16/2015 FINDINGS: No intracranial hyperdense hemorrhage or space-occupying mass. Specifically, there is no subarachnoid hemorrhage present. No hydrocephalus or midline shift. Basilar cisterns are patent. No cerebellar tonsillar ectopia. No acute skull fracture. Complete opacification of the right maxillary, anterior ethmoid and frontal sinuses is compatible with a linear pattern of obstruction. IMPRESSION: 1. No acute intracranial process. Specifically, no hemorrhage or features of large territorial infarct. 2. Right-sided sinusitis has a OMU pattern of obstruction. Dictated by: Dictated on workstation # [id number]
[2021-01-26] MEDS ORDERED: PROMETHAZINE INJ 25 MG/ML (PHENERGAN) AMP IVP ONE (07:45)
[2021-01-26] MEDS ORDERED: ASPIRIN 81 MG CHEW (CHILDREN'S ASA) PO ONE (07:45)
[2021-01-26 08:04] LABS: LIPASE 252 U/L (8-78)
[2021-01-26] MEDS: NITROGLYCERIN 0.4 MG SL TABS BTL 25'S SL PRN ×2 (08:13→08:22)
[2021-01-26] MEDS ORDERED: fentaNYL INJ 100 MCG/2 ML AMP IVP ONE (08:45)
[2021-01-26] MEDS ORDERED: cefTRIAXone FOR IV USE 1,000 MG in WATER (STERILE) FOR INJECTION 10 ML IV ONE (09:00)
[2021-01-26] MEDS ORDERED: LACTATED RINGERS 1,000 ML IV ONE (09:00)
[2021-01-26] MEDS ORDERED: AMOX500C2 PO (09:09)
[2021-01-26] MEDS ORDERED: ONDA4TAB11 SL (09:09)
[2021-01-26] MEDS ORDERED: LORA-404 PO (09:13)
[2021-01-26] MEDS ORDERED: LORazepam 0.5 MG (ATIVAN) TABLET PO STA (09:19)
== END 2021-01-26 10:20 | disposition left against medical advice (07) ==
LOC: EDUNIT# 06:16 → ER 06:18
DX: I10 Essential (primary) hypertension (principal); K85.90 Acute pancreatitis without necrosis or infection, unspecified; J01.90 Acute sinusitis, unspecified; J45.909 Unspecified asthma, uncomplicated; Z77.22 Contact with and (suspected) exposure to environmental tobacco smoke (acute) (chronic); Z79.52 Long term (current) use of systemic steroids
CPT/HCPCS: 70450; 71045; 80053; 83690; 83735; 83874; 84484; 85025; 85379; 85610; 85730; 86141; 93005; 93041; 99284; G0480; 36415; 80320

== ENCOUNTER → 2021-03-10 | Outpatient (CLI) | payer SELFPAY ==
[~2021-03-10] MED LIST changes: +AMOX500C2 PO; +DOXY-311 PO; -DOXY100C42 PO; +LORA-404 PO; +ONDA4TAB11 SL
== END ==
LOC: CARD 12:00
PROVIDERS: ATTEND Nurse Practitioner Family
DX: R00.2 Palpitations (principal)
CPT/HCPCS: 93225; 93226